=== PATIENT | male | born 1995 | race Caucasian/White ===

== ENCOUNTER 2020-08-15 23:06 | Emergency (ER) | payer MEDICAID ==
[~2020-08-15] VITALS: Ht 170.2 cm; Wt 77.1 kg
[2020-08-15 23:30] VITALS: BP 119/84; Ht 170.2 cm; Wt 77.1 kg
[2020-08-16 00:03] LABS: BASOPHIL % 0.6 % (0.2-1.5); PLATELET COUNT 230 x10^3mcL (152-348); RED CELL DISTRIBUTION WIDTH 13.6 % (12.1-16.2)
[2020-08-16 00:18] LABS: CALCIUM 9.1 mg/dL (8.5-10.1); CARBON DIOXIDE 30.5 mmol/L (21-32); CHLORIDE SERUM 101 mmol/L (98-107); CREATININE SERUM 0.9 mg/dL (0.7-1.3); GFR1 > 60 mL/min; GLUCOSE SERUM 114 mg/dL (74-106); POTASSIUM SERUM 3.5 mmol/L (3.5-5.1); SODIUM SERUM 142 mmol/L (136-145)
[2020-08-16 00:22] LABS: ALBUMIN 4.9 g/dL (3.4-5.0); ALKALINE PHOSPHATASE 85 U/L (46-116); ALT/SGPT 31 U/L (16-63); AST/SGOT 21 U/L (15-37); BILIRUBIN TOTAL 0.5 mg/dL (0.20-1.00)
[2020-08-16 00:27] LABS: TOTAL PROTEIN, SERUM 8.3 g/dL (6.4-8.2)
== END 2020-08-16 01:47 | disposition home or self-care (01) ==
LOC: ED 23:06
PROVIDERS: Student in an Organized Health Care Education/Training Program
DX: F32.9 Major depressive disorder, single episode, unspecified (principal); R45.851 Suicidal ideations; F10.99 Alcohol use, unspecified with unspecified alcohol-induced disorder; Z20.828 Contact with and (suspected) exposure to other viral communicable diseases
CPT/HCPCS: G0480; U0003